=== PATIENT | male | born 1950 | race African-American/Black ===

== ENCOUNTER 2016-12-31 08:21 | Outpatient (CLI) | payer MEDICARE ==
--- NOTE | 2016-12-31 11:33 | Fluoroscopy Report ---
UGI AND SMALL BOWEL FOLLOW THROUGH INDICATION: Gastric cancer, status post surgery in September 2015. COMPARISON: 05/16/2016 PET/CT. FINDINGS: Upper GI and small bowel follow-through performed. Patient swallowed thick and thin barium without any difficulty and tolerated effervescent granules well. [employer] radiograph demonstrates nonobstructive bowel gas pattern. Few left upper quadrant surgical clips. Demineralized bones with multilevel spinal degenerative spurring. Esophagus is normal in course and caliber. Small aspiration into the cervical esophagus though noted with thin liquids, series 2, image 11. Normal peristalsis and mucosal pattern, to the extent assessed. No demonstrable hiatal hernia. [id number] gastroesophageal reflux extending up to the mid esophagus seen on image 7, series 1. Normal remainder gastric contours without evidence of peptic ulcer disease in this patient with gastrojejunal anastomosis. 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 Serial overhead abdominal radiographs suggest a small bowel transient time of approximately 30 minutes. Spot radiographs demonstrate no suspicious filling defect, mass, angulation or tethering. Normal terminal ileum. CONCLUSION: 1. Mild aspiration and gastroesophageal reflux noted, as described. Speech pathology evaluation may be considered, as warranted. 2. 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 3. Small bowel transit time of 30 minutes. Please correlate. Thank you for the opportunity to participate in this patient's care.
== END 2016-12-31 08:22 | disposition home or self-care (01) ==
LOC: FLUORO 08:21
PROVIDERS: ATTEND Internal Medicine Gastroenterology
DX: C16.9 Malignant neoplasm of stomach, unspecified (principal); K21.9 Gastro-esophageal reflux disease without esophagitis; K57.10 Diverticulosis of small intestine without perforation or abscess without bleeding; K63.89 Other specified diseases of intestine; R11.2 Nausea with vomiting, unspecified; M53.80 Other specified dorsopathies, site unspecified; Z98.890 Other specified postprocedural states
CPT/HCPCS: 74249